=== PATIENT | male | born 1960 | race Caucasian/White ===

== ENCOUNTER 2021-11-02 10:54 | Observation (INO) ==
[2021-11-02 11:05] VITALS: BMI 34.1
--- NOTE | 2021-11-02 13:00 | DR.GENAD ---
HPI Time Seen Time Seen by Provider: 11/02/21 11:29 PCP Primary Care Physician: ADRIANA PRAJAPATI Complaint/Symptoms Chief Complaint Doctors Comments: DIARRHEA AND FEVER FOR 6 DAYS,SEEN AT [facility] 6 DAYS AGO AND WAS GIVEN IV FLUIDS AND LOMOTIL. HAD XRAY DONE AT PCP 2 DAYS LATER AND WAS TOLD THAT HE HAD A PARTIAL BOWEL OBSTRUCTION AND WAS PUT ON LAXATIVES AND FLUIDS. HERE TODAY FOR FURTHER EVALUATION. Chief Complaint:: PT C/O DIARRHEA WITH INTERMITTENT FEVER SINCE LAST FRIDAY. PT WAS SEEN IN [facility] AND TREATED WITH IVF AND IMMODIUM. PT SAW PCP ON FRIDAY AND HAD XRAY WHICH SHOWED BOWEL OBSTRUCTION. PT WAS THEN TREATED WITH FLEETS ENEMA AND DULCOLAX SUPPOSITORY X 1 WITH MINIMAL RESULTS. PT STATES THAT HE HASN'T HAD FEVER SINCE FRIDAY AND HAS NOT HAD ANY ABDOMINAL PAIN SINCE SYMPTOMS STARTED. Source History Provided: Patient Mode of Arrival Mode of Arrival: Ambulatory Timing Onset of Chief Complaint: 10/27/21 PMH PMH Past Medical History: Yes Past Medical History: Coronary Artery Disease, Dyslipidemia, GERD, Hypertension, Hypothyroidism and CT Past Surgical History: Yes Surgical History: Ortho Surgery Past Surgical History Comment: PYLENIDAL CYST REPAIR X 2, CLEFT LIP REPAIR Family History History of Family Medical Conditions: Yes Family Medical History: CT, Coronary Artery Disease and Hypertension Social History Does patient currently use any type of tobacco product: No Have you used tobacco products in the last 12 months: No Type of Tobacco Use: None Does any household member use tobacco: No Alcohol Use: DAILY Do you use any recreational Drugs:: No Lives With: Family Lives Where: Home Infectious screening In the last 2 months have you had wt loss of >10#?: NO Have you had fever, night sweats or hemotysis?: No Have you traveled outside the country in the last 6 months?: No Isolation: Standard ROS Review of Systems Constitutional: Other (DIARHEA WITH ABDOMINAL BLOATING FOR 9 DAYS) Eyes: No Symptoms Reported ENTM: No Symptoms Reported Respiratoy: No Symptoms Reported Cardiovascular: No Symptoms Reported Gastrointestinal/Abdominal: Diarrhea Genitourinary: No Symptoms Reported Neurological: No Symptoms Reported Musculoskeletal: No Symptoms Reported Integumentary: No Symptoms Reported Hematologic/Lymphatic: No Symptoms Reported Endocrine: No Symptoms Reported Psychiatric: No Symptoms Reported All Other Systems: Reviewed and Negative PE Vital Signs Vitals: Temperature 98.0 F Pulse Rate 90 Respiratory Rate 18 Blood Pressure 130/63 O2 Sat by Pulse Oximetry 97 General Limitations: No Limitations General Appearance: In Distress (MILD DISTRESS) Head Head Exam: Normal Inspection and Atraumatic Eyes Eye exam: Normal Appearance, PERRL and EOMI ENT ENT Exam: Normal Exam, Normal Oropharynx and Normal External Ear Exam External Ear Exam: Normal External Inspection TM/Canal Exam: Bilateral: Normal Nose Exam: Normal Nose Exam Mouth Exam: Normal Inspection Throat Exam: Normal Inspection Neck Neck Exam: Normal Inspection Chest Chest Inspection: Normal Inspection and Symmetric Chest Wall Rise Respiratory Respiratory Exam: Normal Lung Sounds Bilat Respiratory Exam: Bilateral: Clear to Auscultation Cardiovascular Cardiovascular Exam: Regular Rate and Normal Rhythm Abdominal Exam Abdominal Exam: Hyperactive Bowel Sounds Extremities Extremities Exam: Normal Inspection and Full ROM Back Back Exam: Normal Inspection and Full ROM Neurologic Neurological Exam: Alert, Oriented X3 and CN II-XII Intact Psychiatric Psychiatric Exam: Normal Affect and Normal Mood Skin Skin Exam: Warm, Dry and Intact MDM Differential Diagnosis Differential Diagnosis: BOWEL OBSTRUCTION COURSE Treatment Treatment: PATIENT REMAINED STABLE DURING ER VISIT. WAS FOUND TO HAVE BOWEL OBSTRUCTION ON CT SCAN AND SURGICAL CONSULT SUGGESTED. SPOKE TO DR GUZMAN AND HE STATED TO ADMIT THE PATIENT TO DR OLSEN AND HE WOULD CONSULT ON THE PATIENT. THE PATIENT WAS NOTIFIED OF THE INTENT AND WAS AGREABLE TO THE ADMISSION. THE PATIEN ALSO HAD A SODIUM OF 129 AND HES WAS GIVEN A BOLUS OF NACL IN ER AND HE ALSO WOLL BE ON NACL 125 ML HOUR WITH 20KCL FOR A POTASSIUM OF 2.3. ROR Labs Reviewed Laboratory Results Reviewed?: Yes Result Diagrams: 11/02/21 12:52 11/02/21 12:52 Laboratory: WBC 15.3 X10^3/uL (3.6-10.0) H 11/02/21 12:52 RBC 5.10 X10^6/uL (4.7-6.0) 11/02/21 12:52 Hgb 15.3 g/dL (13.5-18.0) 11/02/21 12:52 Hct 43.8 % (42.0-54.0) 11/02/21 12:52 MCV 85.7 fL (80.0-100.0) 11/02/21 12:52 MCH 29.9 pg (27.0-34.0) 11/02/21 12:52 MCHC 34.9 g/dL (33.0-35.0) 11/02/21 12:52 RDW 13.8 % (11.6-16.5) 11/02/21 12:52 Plt Count 368 X10^3/uL (150.0-450.0) 11/02/21 12:52 MPV 8.1 fL (7.4-11.0) 11/02/21 12:52 Neut % (Auto) 72.5 % (42.0-75.0) 11/02/21 12:52 Lymph % (Auto) 14.5 % (21.0-51.0) L 11/02/21 12:52 [place] % (Auto) 12.3 % (0.0-13.0) 11/02/21 12:52 Eos % (Auto) 0.2 % (0.9-2.9) L 11/02/21 12:52 Baso % (Auto) 0.5 % (0.2-1.0) 11/02/21 12:52 Neut # (Auto) 11.1 x10^3/uL (2.2-4.8) H 11/02/21 12:52 Lymph # (Auto) 2.2 X10^3/uL (1.3-2.9) 11/02/21 12:52 [place] # (Auto) 1.9 x10^3/uL (0.3-0.8) H 11/02/21 12:52 Eos # (Auto) 0.0 x10^3/uL (0.0-0.2) 11/02/21 12:52 Baso # (Auto) 0.1 X10^3/uL (0.0-0.1) 11/02/21 12:52 Absolute Nucleated RBC 0.1 /100WBC 11/02/21 12:52 Sodium 129 mmol/L (136-145) L 11/02/21 12:52 Corrected Sodium TNP 11/02/21 12:52 Potassium 3.2 mmol/L (3.5-5.1) L 11/02/21 12:52 Chloride 90 mmol/L (98-107) L 11/02/21 12:52 Carbon Dioxide 27.2 mmol/L (21-32) 11/02/21 12:52 BUN 39 mg/dL (7-18) H 11/02/21 12:52 Creatinine 1.22 mg/dL (0.70-1.30) 11/02/21 12:52 Est GFR (MDRD) Af Amer > 60 (>60) 11/02/21 12:52 Est GFR (MDRD) Non-Af > 60 (>60) 11/02/21 12:52 Glucose 108 mg/dL (65-99) H 11/02/21 12:52 Calcium 8.4 mg/dL (8.5-10.1) L 11/02/21 12:52 Corrected Calcium 9.0 mg/dL (8.5-10.1) 11/02/21 12:52 Total Bilirubin 0.90 mg/dL (0.2-1.0) 11/02/21 12:52 AST 33 Units/L (15-37) 11/02/21 12:52 ALT 42 Units/L (12-78) 11/02/21 12:52 Alkaline Phosphatase 88 Units/L (46-116) 11/02/21 12:52 Total Protein 8.4 g/dL (6.4-8.2) H 11/02/21 12:52 Albumin 3.3 g/dL (3.4-5.0) L 11/02/21 12:52 Globulin 5.1 g/dL (2.5-4.5) H 11/02/21 12:52 Albumin/Globulin Ratio 0.6 Ratio (1.1-2.1) L 11/02/21 12:52 Opioid Opioid Risk Tool Total: 0 Total Score Risk Category: Low Risk Copyright: Adolfo THIBODEAUX predicting aberrant behaviors Discharge Plan Diagnosis Discharge Problem: Partial obstruction of small intestine Discharge Plan Patient Disposition: ADMITTED INPATIENT Condition: Stable Health Concerns: Post Hospitalization: new medications and changes needed to prevent readmission or further decline. Pt educated and given instructions on all concerns. Plan of Treatment: Continue with present treatment and follow up plan. Pt is to keep follow up appointment as instructed and take medications as ordered. Follow ups/Referrals Follow ups/Referrals: ADRIANA PRAJAPATI [Primary Care Provider] - 3 days Instructions Stand Alone Forms: Precautions for COVID, [facility], Patient Portal, Social Distancing
[2021-11-02 13:14] LABS: BASOPHILS # (AUTO) 0.1 X10^3/uL (0.0-0.1); BASOPHILS % (AUTO) 0.5 % (0.2-1.0); EOSINOPHILS % (AUTO) 0.2 % (0.9-2.9); HEMATOCRIT 43.8 % (42.0-54.0); HEMOGLOBIN 15.3 g/dL (13.5-18.0); LYMPHOCYTES # (AUTO) 2.2 X10^3/uL (1.3-2.9); LYMPHOCYTES % (AUTO) 14.5 % (21.0-51.0); MEAN CORPUSCULAR HEMOGLOBIN 29.9 pg (27.0-34.0); MEAN CORPUSCULAR HGB CONC 34.9 g/dL (33.0-35.0); MEAN CORPUSCULAR VOLUME 85.7 fL (80.0-100.0); MEAN PLATELET VOLUME 8.1 fL (7.4-11.0); MONOCYTES # (AUTO) 1.9 x10^3/uL (0.3-0.8); MONOCYTES % (AUTO) 12.3 % (0.0-13.0); NEUTROPHILS # (AUTO) 11.1 x10^3/uL (2.2-4.8); NEUTROPHILS % (AUTO) 72.5 % (42.0-75.0); RED CELL DISTRIBUTION WIDTH 13.8 % (11.6-16.5); WHITE BLOOD COUNT 15.3 X10^3/uL (3.6-10.0)
--- NOTE | 2021-11-02 13:17 | CT ---
ABDOMEN/PELVIS W/O CONHISTORY: Bowel obstructionComparison:NoneTechnique:Multiple non contrast axial images of the abdomen and pelvis were obtained from the lung bases to the pubic symphysis.. Dose reduction techniques including Automated Exposure Control (AEC) and adjustment of mA and kV were utlized.Findings:The sensitivity for focal lesion detection within the solid abdominal viscera is diminished without the use of IV contrast.The heart is normal in size. There is no pericardial effusion. Lung bases are clear without focal consolidation, pleural effusion or pneumothorax.Liver and spleen are normal in size, contour. No focal lesions. No ductal dilitation. Gallbladder is present. No calcified gallstones or gallbladder wall thickening. The pancreas is unremarkable. Adrenal glands are normal. Kidneys are without hydronephrosis or nephrolithiasis. Simple right renal cyst measuring 5.7 cm.Multiple loops of dilated small bowel with small bowel feces sign. Transition point the right mid abdomen with decompression of the distal small bowel. Some air and stool is seen throughout the colon although the colon is relatively decompressed. No abnormal appearing mesenteric or retroperitoneal lymph nodes. . No free fluid or fluid collections.The bladder is normal in appearance. Prostate unremarkable. No free fluid or abnormal pelvic lymph nodes.No aggressive osseous lesions.IMPRESSION:1.Small bowel obstruction with transition point in the right mid abdomen. There is some air and stool distally suggesting this is possibly partial or early. Surgical consultation recommended.Electronically signed by: DAT HANKS (Nov 02, 2021 13:15:22)
[2021-11-02 13:25] LABS: ALANINE AMINOTRANSFERASE 42 Units/L (12-78); ALBUMIN 3.3 g/dL (3.4-5.0); ALKALINE PHOSPHATASE 88 Units/L (46-116); ASPARTATE AMINO TRANSFERASE 33 Units/L (15-37); BLOOD UREA NITROGEN 39 mg/dL (7-18); CALCIUM 8.4 mg/dL (8.5-10.1); CARBON DIOXIDE 27.2 mmol/L (21-32); CHLORIDE 90 mmol/L (98-107); CREATININE 1.22 mg/dL (0.70-1.30); SODIUM 129 mmol/L (136-145); TOTAL PROTEIN 8.4 g/dL (6.4-8.2); eGFR NON BLACK RACES > 60 (>60)
[2021-11-02] MEDS ORDERED: NS 1,000 ML IV 1,000 ML ONE (14:27)
[2021-11-02] MEDS ORDERED: NS 1,000 ML IV 1,000 ML IV ONE (15:02)
[2021-11-02] MEDS: NS + KCL 20 MEQ/L 1,000 ML IV SCH (18:28)
[2021-11-03] MEDS: NS + KCL 20 MEQ/L 1,000 ML IV SCH ×5 (00:51→20:03)
[2021-11-03 06:37] LABS: BASOPHILS % (AUTO) 0.3 % (0.2-1.0); EOSINOPHILS % (AUTO) 0.6 % (0.9-2.9); HEMATOCRIT 41.7 % (42.0-54.0); HEMOGLOBIN 14.6 g/dL (13.5-18.0); LYMPHOCYTES # (AUTO) 1.7 X10^3/uL (1.3-2.9); LYMPHOCYTES % (AUTO) 20.4 % (21.0-51.0); MEAN CORPUSCULAR HEMOGLOBIN 30.2 pg (27.0-34.0); MEAN CORPUSCULAR VOLUME 86.2 fL (80.0-100.0); NEUTROPHILS # (AUTO) 5.5 x10^3/uL (2.2-4.8); NEUTROPHILS % (AUTO) 66.7 % (42.0-75.0); RED BLOOD COUNT 4.84 X10^6/uL (4.7-6.0); RED CELL DISTRIBUTION WIDTH 13.7 % (11.6-16.5); WHITE BLOOD COUNT 8.3 X10^3/uL (3.6-10.0)
[2021-11-03 06:51] LABS: ALANINE AMINOTRANSFERASE 34 Units/L (12-78); ALBUMIN 2.8 g/dL (3.4-5.0); ALKALINE PHOSPHATASE 74 Units/L (46-116); ASPARTATE AMINO TRANSFERASE 29 Units/L (15-37); BLOOD UREA NITROGEN 24 mg/dL (7-18); CALCIUM 8.2 mg/dL (8.5-10.1); CARBON DIOXIDE 26.6 mmol/L (21-32); CHLORIDE 98 mmol/L (98-107); COR CA(FOR HYPOALB) 9.2 mg/dL (8.5-10.1); CREATININE 0.95 mg/dL (0.70-1.30); SODIUM 135 mmol/L (136-145); TOTAL PROTEIN 7.3 g/dL (6.4-8.2); eGFR NON BLACK RACES > 60 (>60)
[2021-11-03 07:10] LABS: BAND NEUTROPHILS % 4 % (0-10); METAMYELOCYTES % 3; MYELOCYTES % 1; PLATELET MORPHOLOGY COMMENT NORMAL (NORMAL)
[2021-11-03] MEDS ORDERED: K-RIDER 10 MEQ/NS 100 ML 10 MEQ/100 ML BAG IV PRN ×2 (08:04→09:28)
[2021-11-03] MEDS ORDERED: POTASSIUM CHLORIDE LIQ 20 MEQ UDC PO PRN ×2 (08:04→09:28)
[2021-11-03] MEDS ORDERED: POTASSIUM CHL 40 MEQ/NS 0.45% 500 ML IV PRN ×2 (08:04→09:28)
[2021-11-03] MEDS ORDERED: MICRO K EXTEN CAP 10 MEQ PO PRN ×2 (08:04→09:28)
[2021-11-03] MEDS ORDERED: POTASSIUM CHL 60 MEQ/NS 0.45% 500 ML IV PRN ×2 (08:04→09:28)
[2021-11-03] MEDS ORDERED: KLOR-CON PO PRN ×2 (08:04→09:28)
[2021-11-03] MEDS ORDERED: K-DUR TAB 20 MEQ PO PRN ×2 (08:04→09:28)
[2021-11-03] MEDS ORDERED: MAGNESIUM SULFATE 1 GRAM/100 mL PREMIX 1 G/100 ML BAG IV PRN (08:04)
--- NOTE | 2021-11-03 09:58 | DR.PROGNOT ---
Hospital Progress Notes - Progress Note for Day of: Progress Note Date: 11/03/21 - Chief Complaint Chief Complaint: feeling better today . had several loose BM last night .. no more diarrhea this am . denies abdominal pain , no vomiting today . dehydration is mostly corrected . WBC normal . afebrile .. - Past Medical Family Social History Past Med/Fam/Surg Hx: No changes since H&P Allergies: Allergies hydromorphone [From Dilaudid] Allergy (Verified 11/02/21 11:05) meperidine [From Demerol] Allergy (Verified 11/02/21 11:05) - Review Of Systems ROS: No change since H&P - Vital Signs Vital Signs: Temperature 97.7 F Pulse Rate [Left Radial] 63 Pulse Rate 90 Respiratory Rate 18 Blood Pressure [Left Arm] 118/65 Blood Pressure 130/63 O2 Sat by Pulse Oximetry 97 - Physical Exam Oriented: Normal Eyes: Normal Ear: Normal Nose: Normal Respiratory: Normal Cardiovascular: Normal : Normal GI:Auscultation: Normal GI:Palpation: Normal GI: Tenderness: Other (soft, flat non tender abdomen . BS+ ) Speech Pattern: Clear, Appropriate - Laboratory and Diagnostics Result Diagrams: 11/03/21 05:40 11/03/21 05:40 Labs: Laboratory WBC 8.3 X10^3/uL (3.6-10.0) 11/03/21 05:40 RBC 4.84 X10^6/uL (4.7-6.0) 11/03/21 05:40 Hgb 14.6 g/dL (13.5-18.0) 11/03/21 05:40 Hct 41.7 % (42.0-54.0) L 11/03/21 05:40 MCV 86.2 fL (80.0-100.0) 11/03/21 05:40 MCH 30.2 pg (27.0-34.0) 11/03/21 05:40 MCHC 35.0 g/dL (33.0-35.0) 11/03/21 05:40 RDW 13.7 % (11.6-16.5) 11/03/21 05:40 Plt Count 318 X10^3/uL (150.0-450.0) 11/03/21 05:40 Plt Count Comment Adequate (ADEQUATE) 11/03/21 05:40 MPV 8.0 fL (7.4-11.0) 11/03/21 05:40 Neut % (Auto) 66.7 % (42.0-75.0) 11/03/21 05:40 Lymph % (Auto) 20.4 % (21.0-51.0) L 11/03/21 05:40 [place] % (Auto) 12.0 % (0.0-13.0) 11/03/21 05:40 Eos % (Auto) 0.6 % (0.9-2.9) L 11/03/21 05:40 Baso % (Auto) 0.3 % (0.2-1.0) 11/03/21 05:40 Neut # (Auto) 5.5 x10^3/uL (2.2-4.8) H 11/03/21 05:40 Lymph # (Auto) 1.7 X10^3/uL (1.3-2.9) 11/03/21 05:40 [place] # (Auto) 1.0 x10^3/uL (0.3-0.8) H 11/03/21 05:40 Eos # (Auto) 0.0 x10^3/uL (0.0-0.2) 11/03/21 05:40 Baso # (Auto) 0.0 X10^3/uL (0.0-0.1) 11/03/21 05:40 Absolute Nucleated RBC 0.0 /100WBC 11/03/21 05:40 Total Counted 100 11/03/21 05:40 Neutrophils % (Manual) 62 % (39-76) 11/03/21 05:40 Band Neutrophils % 4 % (0-10) 11/03/21 05:40 Lymphocytes % (Manual) 17 % (13-43) 11/03/21 05:40 Monocytes % (Manual) 13 % (4-9) H 11/03/21 05:40 Metamyelocytes % 3 11/03/21 05:40 Myelocytes % 1 11/03/21 05:40 Atypical Lymphocytes Few 11/03/21 05:40 Plt Morphology Comment Normal (NORMAL) 11/03/21 05:40 RBC Morphology Normal (NORMAL) 11/03/21 05:40 Sodium 135 mmol/L (136-145) L 11/03/21 05:40 Corrected Sodium TNP 11/03/21 05:40 Potassium 3.4 mmol/L (3.5-5.1) L 11/03/21 05:40 Chloride 98 mmol/L (98-107) 11/03/21 05:40 Carbon Dioxide 26.6 mmol/L (21-32) 11/03/21 05:40 BUN 24 mg/dL (7-18) H 11/03/21 05:40 Creatinine 0.95 mg/dL (0.70-1.30) 11/03/21 05:40 Est GFR (MDRD) Af Amer > 60 (>60) 11/03/21 05:40 Est GFR (MDRD) Non-Af > 60 (>60) 11/03/21 05:40 Glucose 86 mg/dL (65-99) 11/03/21 05:40 Calcium 8.2 mg/dL (8.5-10.1) L 11/03/21 05:40 Corrected Calcium 9.2 mg/dL (8.5-10.1) 11/03/21 05:40 Magnesium 2.3 mg/dL (1.7-2.9) 11/03/21 05:40 Total Bilirubin 0.70 mg/dL (0.2-1.0) 11/03/21 05:40 AST 29 Units/L (15-37) 11/03/21 05:40 ALT 34 Units/L (12-78) 11/03/21 05:40 Alkaline Phosphatase 74 Units/L (46-116) 11/03/21 05:40 Total Protein 7.3 g/dL (6.4-8.2) 11/03/21 05:40 Albumin 2.8 g/dL (3.4-5.0) L 11/03/21 05:40 Globulin 4.5 g/dL (2.5-4.5) 11/03/21 05:40 Albumin/Globulin Ratio 0.6 Ratio (1.1-2.1) L 11/03/21 05:40 SARS-CoV-2 (PCR) Negative (NEGATIVE) 11/02/21 15:04 - Assessment and Plan 1: improving colitis and partial SBO .. dehydration ( corrected ) . added Flagyl 500 mg Q 8n h . to advance diet to clear liquid .. needs future GI w/u as out Pt .. - Problem Patient Problems: Patient Problems Partial obstruction of small intestine (Acute) K56.693
--- NOTE | 2021-11-03 10:12 | RAD ---
HISTORYObstructionSTUDYKUBCOMPARISON .br.br.br.br.br unchanged with moderately dilated small bowel. Distal small bowel and colon are decompressed. No free air.IMPRESSIONStable findings of mechanical small-bowel obstruction.Electronically signed by: Cesar Rand (Nov 03, 2021 10:10:32)
[2021-11-03] MEDS: FLAGYL IV PREMIX 500 MG BAG 500 MG/100 ML BAG IV SCH ×3 (11:18→22:05)
[2021-11-03 11:57] LABS: CRYPTOSPORIDIUM PARVUM ANTIGEN NEGATIVE (NEGATIVE); GIARDIA LAMBLIA ANTIGEN NEGATIVE (NEGATIVE)
--- NOTE | 2021-11-03 13:27 | DR.H&P ---
H&P History & Physical for Day of: H&P Date: 11/03/21 Chief Complaint Chief Complaint: Diarrhea with abdominal swelling Allergies Allergies Allergy/AdvReac Type Severity Reaction Status Date / Time hydromorphone [From Dilaudid] Allergy Verified 11/02/21 11:05 meperidine [From Demerol] Allergy Verified 11/02/21 11:05 History of Present Illness History of Present Illness: This is a pleasant 60-year-old white male who presented to the [facility] emergency department with complaints of a 6-day history of diarrhea. He was seen in the [facility] emergency department last weekend which they gave him IV fluid and sent him home. 2 days later he saw his primary care physician and [place] [facility], [place] and she ordered a x-ray of the abdomen which showed what looked like to be a partial small bowel obstruction and she gave him fleets enema and Dulcolax suppositories for this. Despite that he started not having any bowel movements his abdomen continued to swell so he came to the emergency department here for further treatment. CT scan done in ER showed what looked like to be a probable partial small bowel obstruction. Dr. Monroe, general surgeon was consulted and we elected to go ahead and admit him to the hospital for further care. He was also noted to be hypokalemic and hyponatremic on admission. This morning the patient reports he has had 7 or 8 bouts of diarrhea that started last night after admission. He is feeling better this morning and not having any abdominal pain. His sodium is nearly normalized to 135 now and his potassium is improved at 3.4. Past Medical History Past Medical History: Coronary Artery Disease, Dyslipidemia, GERD, Hypertension, Hypothyroidism and SD Past Surgical History Surgical History: Other Family History Family Medical History: Cancer, SD and Hypertension Social History Does patient currently use any type of tobacco product: No Have you used tobacco products in the last 12 months: No Type of Tobacco Use: Cigarettes How many years tobacco product used: 30 Does any household member use tobacco: No Alcohol Use: DAILY Drug Use: None Medications Home Medications: hydromorphone [From Dilaudid] Allergy (Verified 11/02/21 11:05) meperidine [From Demerol] Allergy (Verified 11/02/21 11:05) CONTINUE taking the following medications amlodipine 5 mg tablet 1 tab PO QDAY 11/02/21 [History] aspirin 81 mg capsule 81 mg PO QDAY 11/02/21 [History] fenofibrate 160 mg tablet 1 tab PO QDAY 11/02/21 [History] levothyroxine 75 mcg tablet 1 tab PO QDAY 11/02/21 [History] losartan 50 mg-hydrochlorothiazide 12.5 mg tablet 1 tab PO QDAY 11/02/21 [History] metoprolol succinate 50 mg tablet,extended release 24 hr 1 tab PO QDAY 11/02/21 [History] omeprazole 20 mg capsule,delayed release 1 cap PO QDAY 11/02/21 [History] rosuvastatin 20 mg tablet 1 tab PO HS 11/02/21 [History] Labs Result Diagrams: 11/03/21 05:40 11/03/21 05:40 Labs: Laboratory WBC 8.3 X10^3/uL (3.6-10.0) 11/03/21 05:40 RBC 4.84 X10^6/uL (4.7-6.0) 11/03/21 05:40 Hgb 14.6 g/dL (13.5-18.0) 11/03/21 05:40 Hct 41.7 % (42.0-54.0) L 11/03/21 05:40 MCV 86.2 fL (80.0-100.0) 11/03/21 05:40 MCH 30.2 pg (27.0-34.0) 11/03/21 05:40 MCHC 35.0 g/dL (33.0-35.0) 11/03/21 05:40 RDW 13.7 % (11.6-16.5) 11/03/21 05:40 Plt Count 318 X10^3/uL (150.0-450.0) 11/03/21 05:40 Plt Count Comment Adequate (ADEQUATE) 11/03/21 05:40 MPV 8.0 fL (7.4-11.0) 11/03/21 05:40 Neut % (Auto) 66.7 % (42.0-75.0) 11/03/21 05:40 Lymph % (Auto) 20.4 % (21.0-51.0) L 11/03/21 05:40 [place] % (Auto) 12.0 % (0.0-13.0) 11/03/21 05:40 Eos % (Auto) 0.6 % (0.9-2.9) L 11/03/21 05:40 Baso % (Auto) 0.3 % (0.2-1.0) 11/03/21 05:40 Neut # (Auto) 5.5 x10^3/uL (2.2-4.8) H 11/03/21 05:40 Lymph # (Auto) 1.7 X10^3/uL (1.3-2.9) 11/03/21 05:40 [place] # (Auto) 1.0 x10^3/uL (0.3-0.8) H 11/03/21 05:40 Eos # (Auto) 0.0 x10^3/uL (0.0-0.2) 11/03/21 05:40 Baso # (Auto) 0.0 X10^3/uL (0.0-0.1) 11/03/21 05:40 Absolute Nucleated RBC 0.0 /100WBC 11/03/21 05:40 Total Counted 100 11/03/21 05:40 Neutrophils % (Manual) 62 % (39-76) 11/03/21 05:40 Band Neutrophils % 4 % (0-10) 11/03/21 05:40 Lymphocytes % (Manual) 17 % (13-43) 11/03/21 05:40 Monocytes % (Manual) 13 % (4-9) H 11/03/21 05:40 Metamyelocytes % 3 11/03/21 05:40 Myelocytes % 1 11/03/21 05:40 Atypical Lymphocytes Few 11/03/21 05:40 Plt Morphology Comment Normal (NORMAL) 11/03/21 05:40 RBC Morphology Normal (NORMAL) 11/03/21 05:40 Sodium 135 mmol/L (136-145) L 11/03/21 05:40 Corrected Sodium TNP 11/03/21 05:40 Potassium 3.4 mmol/L (3.5-5.1) L 11/03/21 05:40 Chloride 98 mmol/L (98-107) 11/03/21 05:40 Carbon Dioxide 26.6 mmol/L (21-32) 11/03/21 05:40 BUN 24 mg/dL (7-18) H 11/03/21 05:40 Creatinine 0.95 mg/dL (0.70-1.30) 11/03/21 05:40 Est GFR (MDRD) Af Amer > 60 (>60) 11/03/21 05:40 Est GFR (MDRD) Non-Af > 60 (>60) 11/03/21 05:40 Glucose 86 mg/dL (65-99) 11/03/21 05:40 Calcium 8.2 mg/dL (8.5-10.1) L 11/03/21 05:40 Corrected Calcium 9.2 mg/dL (8.5-10.1) 11/03/21 05:40 Magnesium 2.3 mg/dL (1.7-2.9) 11/03/21 05:40 Total Bilirubin 0.70 mg/dL (0.2-1.0) 11/03/21 05:40 AST 29 Units/L (15-37) 11/03/21 05:40 ALT 34 Units/L (12-78) 11/03/21 05:40 Alkaline Phosphatase 74 Units/L (46-116) 11/03/21 05:40 Total Protein 7.3 g/dL (6.4-8.2) 11/03/21 05:40 Albumin 2.8 g/dL (3.4-5.0) L 11/03/21 05:40 Globulin 4.5 g/dL (2.5-4.5) 11/03/21 05:40 Albumin/Globulin Ratio 0.6 Ratio (1.1-2.1) L 11/03/21 05:40 Stool Description 100g softformed brn 11/03/21 10:56 Stool Description 100g softformed bwn 11/03/21 10:56 Stl Occult Blood (IFOB) Positive (NEGATIVE) A 11/03/21 10:56 Stool for White Cells Positive (NEGATIVE) A 11/03/21 10:56 Stl C. diff Tox B Gene Negative (NEGATIVE) 11/03/21 10:56 Stl C. diff [id number] Presumptive negative (NEGATIVE) 11/03/21 10:56 SARS-CoV-2 (PCR) Negative (NEGATIVE) 11/02/21 15:04 Cryptosporid parvum Ag Negative (NEGATIVE) 11/03/21 10:56 Giardia lamblia Ag Negative (NEGATIVE) 11/03/21 10:56 Review of Systems Constitutional: Weakness and Malaise ENT: No Symptoms Reported Respiratory: No Symptoms Reported Cardiovascular: No Symptoms Reported Gastrointestinal: Nausea and Diarrhea Genitourinary: No Symptoms Reported Musculoskeletal: No Symptoms Reported Skin: No Symptoms Reported Neurological: No Symptoms Reported Physical Exam Vital Signs: Temperature 98.4 F Pulse Rate [Left Radial] 74 Pulse Rate 90 Respiratory Rate 20 Blood Pressure [Left Arm] 134/78 Blood Pressure 130/63 O2 Sat by Pulse Oximetry 98 Oriented: Normal Eyes: Normal Ear: Normal Nose: Normal Throat: Normal Respiratory: Clear Throughout Cardiovascular: Normal : Normal Auscultation: Bowel Sounds: Normal Palpation: Normal Tenderness: Normal Skin: Normal Musculoskeletal: Normal Psychiatric: Normal Mood Description: Calm Affect: Normal Speech Pattern: Clear and Appropriate Assessment/Plan (1) Partial obstruction of small intestine: Narrative Support Text: I suspect the patient's partial obstruction of the small intestines is improving as he is having bowel movements now however they are still very loose. Status: Acute Plan: Treatment per general surgery, Dr. Sanders. (2) Enterocolitis: Status: Acute Plan: I will check stool cultures, C. difficile, ova and parasite, stool WBCs and Hemoccult. After the test are collected we will start him on IV Cipro along with IV Flagyl that started earlier today. Review H&P Reviewed: Yes Patient was examined?: Yes
[2021-11-04] MEDS: NS + KCL 20 MEQ/L 1,000 ML IV SCH ×2 (05:07→05:08)
[2021-11-04] MEDS: FLAGYL IV PREMIX 500 MG BAG 500 MG/100 ML BAG IV SCH (05:08)
[2021-11-04 06:36] LABS: BASOPHILS % (AUTO) 0.4 % (0.2-1.0); EOSINOPHILS # (AUTO) 0.1 x10^3/uL (0.0-0.2); EOSINOPHILS % (AUTO) 1.2 % (0.9-2.9); HEMATOCRIT 39.3 % (42.0-54.0); HEMOGLOBIN 13.6 g/dL (13.5-18.0); LYMPHOCYTES # (AUTO) 1.5 X10^3/uL (1.3-2.9); LYMPHOCYTES % (AUTO) 16.4 % (21.0-51.0); MEAN CORPUSCULAR HGB CONC 34.6 g/dL (33.0-35.0); MEAN CORPUSCULAR VOLUME 86.5 fL (80.0-100.0); MEAN PLATELET VOLUME 7.9 fL (7.4-11.0); MONOCYTES # (AUTO) 0.8 x10^3/uL (0.3-0.8); MONOCYTES % (AUTO) 9.2 % (0.0-13.0); NEUTROPHILS # (AUTO) 6.7 x10^3/uL (2.2-4.8); NEUTROPHILS % (AUTO) 72.8 % (42.0-75.0); RED BLOOD COUNT 4.55 X10^6/uL (4.7-6.0); WHITE BLOOD COUNT 9.2 X10^3/uL (3.6-10.0)
[2021-11-04 06:55] LABS: ALANINE AMINOTRANSFERASE 32 Units/L (12-78); ALBUMIN 2.6 g/dL (3.4-5.0); ALKALINE PHOSPHATASE 63 Units/L (46-116); ASPARTATE AMINO TRANSFERASE 23 Units/L (15-37); BLOOD UREA NITROGEN 7 mg/dL (7-18); CARBON DIOXIDE 25.4 mmol/L (21-32); CHLORIDE 103 mmol/L (98-107); COR CA(FOR HYPOALB) 9.1 mg/dL (8.5-10.1); CREATININE 0.77 mg/dL (0.70-1.30); SODIUM 139 mmol/L (136-145); TOTAL PROTEIN 6.6 g/dL (6.4-8.2); eGFR NON BLACK RACES > 60 (>60)
[2021-11-04 07:13] LABS: BAND NEUTROPHILS % 6 % (0-10); METAMYELOCYTES % 4; MYELOCYTES % 2; PLATELET MORPHOLOGY COMMENT NORMAL (NORMAL)
[2021-11-04 08:11] VITALS: BP 121/73
--- NOTE | 2021-11-04 09:40 | RAD ---
HISTORYObstructionSTUDYKUBCOMPARISON .br.br.br.br.br remains, though improved from prior study. Gas-filled colon noted. No free air.IMPRESSIONImproving findings of mechanical small-bowel obstruction.Electronically signed by: Cesar Rand (Nov 04, 2021 09:38:00)
--- NOTE | 2021-11-04 10:27 | DR.PROGNOT ---
Hospital Progress Notes - Progress Note for Day of: Progress Note Date: 11/04/21 - Chief Complaint Chief Complaint: feeling better today . \no abdominal pain. had foremed BM last night .. no more diarrhea . dehydration is mostly corrected . WBC normal . afebrile .. - Past Medical Family Social History Past Med/Fam/Surg Hx: No changes since H&P Allergies: Allergies hydromorphone [From Dilaudid] Allergy (Verified 11/02/21 11:05) meperidine [From Demerol] Allergy (Verified 11/02/21 11:05) - Review Of Systems ROS: No change since H&P - Vital Signs Vital Signs: Temperature 98.2 F Pulse Rate [Left Radial] 78 Pulse Rate 90 Respiratory Rate 20 Blood Pressure [Left Arm] 121/73 Blood Pressure 130/63 O2 Sat by Pulse Oximetry 98 - Physical Exam Oriented: Normal Eyes: Normal Ear: Normal Nose: Normal Throat: Normal Respiratory: Normal Cardiovascular: Normal : Normal GI:Auscultation: Normal GI:Palpation: Normal GI: Tenderness: Normal Skin: Normal Musculoskeletal: Normal Psychiatric: Normal Mood Description: Calm Affect: Normal Speech Pattern: Clear, Appropriate - Laboratory and Diagnostics Result Diagrams: 11/04/21 05:53 11/04/21 05:53 Labs: 11/03/21 19:04 Stool - Final Laboratory WBC 9.2 X10^3/uL (3.6-10.0) 11/04/21 05:53 RBC 4.55 X10^6/uL (4.7-6.0) L 11/04/21 05:53 Hgb 13.6 g/dL (13.5-18.0) 11/04/21 05:53 Hct 39.3 % (42.0-54.0) L 11/04/21 05:53 MCV 86.5 fL (80.0-100.0) 11/04/21 05:53 MCH 30.0 pg (27.0-34.0) 11/04/21 05:53 MCHC 34.6 g/dL (33.0-35.0) 11/04/21 05:53 RDW 14.0 % (11.6-16.5) 11/04/21 05:53 Plt Count 304 X10^3/uL (150.0-450.0) 11/04/21 05:53 Plt Count Comment Adequate (ADEQUATE) 11/04/21 05:53 MPV 7.9 fL (7.4-11.0) 11/04/21 05:53 Neut % (Auto) 72.8 % (42.0-75.0) 11/04/21 05:53 Lymph % (Auto) 16.4 % (21.0-51.0) L 11/04/21 05:53 Power % (Auto) 9.2 % (0.0-13.0) 11/04/21 05:53 Eos % (Auto) 1.2 % (0.9-2.9) 11/04/21 05:53 Baso % (Auto) 0.4 % (0.2-1.0) 11/04/21 05:53 Neut # (Auto) 6.7 x10^3/uL (2.2-4.8) H 11/04/21 05:53 Lymph # (Auto) 1.5 X10^3/uL (1.3-2.9) 11/04/21 05:53 Power # (Auto) 0.8 x10^3/uL (0.3-0.8) 11/04/21 05:53 Eos # (Auto) 0.1 x10^3/uL (0.0-0.2) 11/04/21 05:53 Baso # (Auto) 0.0 X10^3/uL (0.0-0.1) 11/04/21 05:53 Absolute Nucleated RBC 0.0 /100WBC 11/04/21 05:53 Total Counted 100 11/04/21 05:53 Neutrophils % (Manual) 56 % (39-76) 11/04/21 05:53 Band Neutrophils % 6 % (0-10) 11/04/21 05:53 Lymphocytes % (Manual) 20 % (13-43) 11/04/21 05:53 Monocytes % (Manual) 10 % (4-9) H 11/04/21 05:53 Eosinophils % (Manual) 2 % (0-6) 11/04/21 05:53 Metamyelocytes % 4 11/04/21 05:53 Myelocytes % 2 11/04/21 05:53 Atypical Lymphocytes Few 11/03/21 05:40 Plt Morphology Comment Normal (NORMAL) 11/04/21 05:53 RBC Morphology Normal (NORMAL) 11/04/21 05:53 Sodium 139 mmol/L (136-145) 11/04/21 05:53 Corrected Sodium TNP 11/04/21 05:53 Potassium 3.7 mmol/L (3.5-5.1) 11/04/21 05:53 Chloride 103 mmol/L (98-107) 11/04/21 05:53 Carbon Dioxide 25.4 mmol/L (21-32) 11/04/21 05:53 BUN 7 mg/dL (7-18) 11/04/21 05:53 Creatinine 0.77 mg/dL (0.70-1.30) 11/04/21 05:53 Est GFR (MDRD) Af Amer > 60 (>60) 11/04/21 05:53 Est GFR (MDRD) Non-Af > 60 (>60) 11/04/21 05:53 Glucose 98 mg/dL (65-99) 11/04/21 05:53 Calcium 8.0 mg/dL (8.5-10.1) L 11/04/21 05:53 Corrected Calcium 9.1 mg/dL (8.5-10.1) 11/04/21 05:53 Magnesium 2.3 mg/dL (1.7-2.9) 11/03/21 05:40 Total Bilirubin 0.40 mg/dL (0.2-1.0) 11/04/21 05:53 AST 23 Units/L (15-37) 11/04/21 05:53 ALT 32 Units/L (12-78) 11/04/21 05:53 Alkaline Phosphatase 63 Units/L (46-116) 11/04/21 05:53 Total Protein 6.6 g/dL (6.4-8.2) 11/04/21 05:53 Albumin 2.6 g/dL (3.4-5.0) L 11/04/21 05:53 Globulin 4.0 g/dL (2.5-4.5) 11/04/21 05:53 Albumin/Globulin Ratio 0.7 Ratio (1.1-2.1) L 11/04/21 05:53 Stool Description 200 g. soft/brown 11/03/21 19:04 Stl Occult Blood (IFOB) Positive (NEGATIVE) A 11/03/21 19:04 Stool for White Cells Positive (NEGATIVE) A 11/03/21 19:04 Stl C. diff Tox B Gene Negative (NEGATIVE) 11/03/21 19:04 Stl C. diff [id number] Presumptive negative (NEGATIVE) 11/03/21 19:04 SARS-CoV-2 (PCR) Negative (NEGATIVE) 11/02/21 15:04 Cryptosporid parvum Ag Negative (NEGATIVE) 11/03/21 10:56 Giardia lamblia Ag Negative (NEGATIVE) 11/03/21 10:56 - Assessment and Plan 1: improving colitis and partial SBO .. dehydration ( corrected ) . added Flagyl 500 mg Q 8n h . to advance diet . may be discharged to follow in 10 days . needs future GI w/u as out Pt .. - Problem Patient Problems: Patient Problems Partial obstruction of small intestine (Acute) K56.600
== END 2021-11-04 11:00 | disposition home or self-care (01) ==
LOC: SUPCPDRO → MED/SURG 10:54 → ER 10:54 → MED/SURG 15:36
PROVIDERS: ADMIT Family Medicine; ATTEND Family Medicine
DX: E78.2 Mixed hyperlipidemia; K21.9 Gastro-esophageal reflux disease without esophagitis; I10 Essential (primary) hypertension; Z20.822 Contact with and (suspected) exposure to COVID-19; I25.10 Atherosclerotic heart disease of native coronary artery without angina pectoris; E86.0 Dehydration; E87.1 Hypo-osmolality and hyponatremia; K56.690 Other partial intestinal obstruction; E03.8 Other specified hypothyroidism; K52.89 Other specified noninfective gastroenteritis and colitis; E87.6 Hypokalemia